=== PATIENT | male | born 1950 | race African-American/Black ===

== ENCOUNTER 2024-03-13 16:35 | Emergency (ER) | payer MEDICARE, MEDICAID ==
[~2024-03-13] VITALS: Ht 175.3 cm; Wt 80.0 kg
[2024-03-13 16:41] VITALS: BP 120/67; PULSE 76; RESP 16; TEMP 98; O2SAT 96
[2024-03-13] MEDS: ONDANSETRON HCL 4MG/2ML INJ IV STA (16:48)
[2024-03-13] MEDS ORDERED: SODIUM CHLORIDE 0.9% 1,000 ML IV ONE (17:00)
== END 2024-03-13 17:58 | disposition left against medical advice (07) ==
LOC: ER 16:35
DX: R11.0 Nausea (principal); I10 Essential (primary) hypertension
CPT/HCPCS: 99283; 96374; 71045; 93005; J2405; J7030